=== PATIENT | female | born 1960 | race Caucasian/White ===

== ENCOUNTER 2018-01-12 13:31 | Inpatient (IN) | payer OTHER ==
[~2018-01-12] VITALS: Ht 162.6 cm; Wt 64.9 kg
[2018-01-12 14:40] LABS: ABSOLUTE BASOPHIL COUNT 0 /CUMM (0.0-0.2); ABSOLUTE EOSINOPHIL COUNT 0 /CUMM (0.0-0.7); ABSOLUTE GRANULOCYTE CT 18.5 /CUMM (1.4-6.5); ABSOLUTE LYMPH COUNT 0.9 /CUMM (1.2-3.4); ABSOLUTE MONOCYTE COUNT 1.2 /CUMM (0.10-0.60); BASOPHIL % 0 % (0.0-2.0); EOSINOPHIL % 0.1 % (0-5); HEMATOCRIT 36.7 % (37-47); MEAN CORPUSCULAR HGB 30.2 PG (27.0-31.0); MEAN CORPUSCULAR HGB CONC 33.9 G/DL (33.0-37.0); MEAN PLATELET VOLUME 7.3 FL (7.4-10.4); PLATELET COUNT 195 /CUMM (130-400); RBC DISTRIBUTION WIDTH 13.2 % (11.5-14.5); RED BLOOD CELL CT 4.13 /CUMM (4.20-5.40); WHITE BLOOD CELL COUNT 20.6 /CUMM (4.8-10.8)
--- NOTE | 2018-01-12 14:41 | RADIOLOGY REPORT ---
EXAMINATION: XR CHEST CLINICAL INFORMATION: Cough, evaluate for pneumonia COMPARISON: None TECHNIQUE: 2 views of the chest were obtained. FINDINGS: No significant abnormality is noted involving the heart, lungs, mediastinum, bony thorax or soft tissues. Fusion hardware projects over the lumbar spine, partially imaged. IMPRESSION: No acute pulmonary process.
[2018-01-12 14:46] LABS: GRANULOCYTE % 89.8 % (42.2-75.2)
--- NOTE | 2018-01-12 15:23 | CT SCAN REPORT ---
EXAMINATION: CT HEAD WITHOUT CONTRAST CLINICAL INFORMATION: Left-sided headache. COMPARISON: None TECHNIQUE: Contiguous axial imaging was performed from the skull base to vertex without intravenous administration of contrast. DLP: 610.4 mGy-cm FINDINGS: There is no evidence of acute intracranial hemorrhage or territorial infarction. No abnormal mass effect or midline shift is seen. Gaitan to white matter differentiation is well preserved. No extra-axial fluid collections are identified. The ventricles are normal in size. There is no abnormal attenuation within the brain parenchyma. The osseous structures and soft tissues are normal. The mastoid air cells and visualized portions of the paranasal sinuses are well aerated. IMPRESSION: No acute intracranial pathology.
--- NOTE | 2018-01-12 17:53 | ED GENERAL ADULT ---
History of Present Illness General Chief Complaint: General Adult Stated Complaint: PER PT INFECTION?, FEVER, DIZZINESS Source: patient Exam Limitations: no limitations Allergies Coded Allergies: Penicillins (SWELLING 01/12/18) ciprofloxacin (From CIPRO) (HIVES 01/12/18) Triage Note: PT TO ED C/O FEVER X 2 DAYS. PT HAD RECTAL SURGERY 12/21. PT SENT TO ED BY HER PCP TO R/O PNA OR UTI. C/O HEADACHE AND NAUSEA. AFEBRILE NOW. Triage Nurses Notes Reviewed? yes Onset: Gradual Duration: week(s): Timing: constant HPI: 58-year-old female with a history of hypertension, anxiety, HPV, 3 weeks postop from rectal surgery (had several rectal lesions excised and biopsied) presenting with urinary frequency/urgency 2 weeks and now with fevers to 103, nausea, and generalized malaise 2-3 days. She has also had intermittent left-sided stabbing headaches, does not normally have a history of headaches. No recent head trauma. Denies visual changes or vomiting. Denies URI symptoms, cough, CP , SOB, abdominal pain, vomiting, diarrhea, constipation, melena, hematochezia. Initially had slight bloody stools after her surgery which have since resolved. (Nereida Novoa) Vital Signs & Intake/Output Vital Signs & Intake/Output Vital Signs Date Time Temp Pulse Resp B/P B/P Pulse O2 O2 Flow FiO2 Mean Ox Delivery Rate 01/12 1859 98.3 89 15 112/63 99 Room Air Room Air 01/12 1632 97.2 87 18 116/58 99 Room Air 01/12 1414 98.6 107 20 123/77 97 Room Air Reconcile Medications Alprazolam (Alprazolam ER) 0.5 MG TAB.ER.24H 1 TAB PO QHS SLEEP (Reported) Aspirin (Ecotrin*) 81 MG TABLET.DR 1 TAB PO DAILY HEART/BLOOD (Reported) Escitalopram Oxalate (Lexapro) 20 MG TABLET 1 TAB PO DAILY MENTAL HEALTH ( Reported) Fish Oil/Borage/Flax/Om3,6,9#1 ([place] 3-6-9 1,200 MG Softgel) (Unknown Strength) CAPSULE (Unknown Dose) PO DAILY SUPPLEMENT (Reported) Fluticasone Propionate 50 MCG/ACTUATION SPRAY.SUSP 2 SPRAY NASB DAILY SINUSES (Reported) Pantoprazole Sodium 40 MG TABLET. 1 TAB PO Q4D GI (Reported) Valsartan/Hydrochlorothiazide (Valsartan-Hctz 160-25 MG Tab) 160 MG-25 MG TABLET 1 TAB PO DAILY BP (Reported) (Jorge HERNANDEZ,Yousuf) Past History Travel History Traveled to [place] past 21 day No Medical History Any Pertinent Medical History? see below for history Cardiovascular: hypertension Psychiatric: anxiety Surgical History Surgical History: rectal surgery Psychosocial History What is your primary language Zimbabwean Tobacco Use: Quit >30 days ago ETOH Use: denies use Illicit Drug Use: denies illicit drug use Family History Hx Contributory? No (Nereida Novoa) Review of Systems Review of Systems Constitutional: Reports: see HPI. EENTM: Reports: no symptoms. Respiratory: Reports: no symptoms. Cardiovascular: Reports: no symptoms. GI: Reports: no symptoms. Genitourinary: Reports: see HPI. Musculoskeletal: Reports: no symptoms. Skin: Reports: no symptoms. Neurological/Psychological: Reports: no symptoms. Hematologic/Endocrine: Reports: no symptoms. Immunologic/Allergic: Reports: no symptoms. All Other Systems: Reviewed and Negative (Nereida Novoa) Physical Exam Physical Exam General Appearance: well developed/nourished, no apparent distress, alert, awake Comments: Gen.: Well-nourished, well-developed, no acute distress. Head: Normocephalic, atraumatic. Eyes: Normal inspection bilaterally Ears: Normal inspection bilaterally Nose: Normal inspection Neck: Normal inspection Lungs: clear to auscultation bilaterally, normnal breath sounds Heart: regular rate and rhythm Abdomen: soft and non-tender Back: No CVA tenderness Extremities: Normal inspection Neurologic: alert and oriented x3, steady gait Skin: warm and dry Psychiatric: Normal mood and affect, no apparent delusions or hallucinations, behavior appropriate Core Measures ACS in differential dx? No CVA/TIA Diagnosis: No Sepsis Present: No Sepsis Focused Exam Completed? No (Nereida Novoa) Progress Differential Diagnoses I considered the following diagnoses in my evaluation of the patient: [UTI versus pyelonephritis versus sepsis versus dehydration] Initial ED EKG: rhythm (sinus), nonspecific ST T wave chg (Nereida Novoa) Plan of Care: Orders Procedure Date/time Status Heart Healthy Diet 01/13 B Active ED Holding Orders 01/12 184 Active Admit to inpatient 01/12 1843 Active Vital Signs 01/12 184 Active Code Status 01/12 184 Active US-RENAL/KIDNEY 01/12 182 Active Add-on Test (ER Only) 01/12 180 Active EKG 01/12 180 Active Add-on Test (ER Only) 01/12 1800 Active BLOOD CULTURE 01/12 1739 Active CULTURE,URINE 01/12 1550 Active TROPONIN LEVEL 01/12 1430 Complete URINALYSIS 01/12 141 Complete LACTIC ACID 01/12 141 Complete COMPREHENSIVE METABOLIC PANEL 01/12 141 Complete CBC WITHOUT DIFFERENTIAL 01/12 141 Complete EKG 01/12 141 Active Laboratory Tests 01/12/18 1716: Lactic Acid Cancelled 01/12/18 1550: Urinalysis LIGHT H, Urine Color YEL, Urine Clarity HAZY H, Urine pH 6.0, Ur Specific [place] 1.025, Urine Protein 30 H, Urine Ketones TRACE H, Urine Nitrite NEG, Urine Bilirubin NEG, Urine Urobilinogen 1.0, Ur Leukocyte Esterase LARGE H, Ur Microscopic SEDIMENT EXAMINED, Urine RBC 3-5, Urine WBC > 75 H, Ur Epithelial Cells MOD H, Urine Bacteria MANY H, Hyaline Casts 1-3 H, Urine Hemoglobin SMALL H, Urine Glucose NEG 01/12/18 1430: Anion Gap 14, Estimated GFR 38 L, BUN/Creatinine Ratio 16.4, Glucose 131 H, Lactic Acid 1.2, Calcium 9.2, Total Bilirubin 0.7, AST 29, ALT 31, Alkaline Phosphatase 68, Troponin I < 0.01, Total Protein 7.2, Albumin 4.2, Globulin 3.0, Albumin/Globulin Ratio 1.4, CBC w Diff MAN DIFF ORDERED, RBC 4.13 L, MCV 89.0, MCH 30.2, MCHC 33.9, RDW 13.2, MPV 7.3 L, Gran % 89.8 H, Lymphocytes % 4.4 L, Monocytes % 5.7, Eosinophils % 0.1, Basophils % 0, Absolute Granulocytes 18.5 H , Segmented Neutrophils 81 H, Band Neutrophils 6 H, Absolute Lymphocytes 0.9 L, Lymphocytes 7 L, Monocytes 6, Absolute Monocytes 1.2 H, Absolute Eosinophils 0, Absolute Basophils 0, Platelet Estimate VERIFIED BY SMEAR, Normocytic RBCs VERIFIED, Normochromic RBCs VERIFIED Microbiology 09/19 1827 BLOOD: Blood Culture - RECD 01/12 1800 BLOOD: Blood Culture - RECD 01/12 1550 URINE ROUT: Urine Culture - RECD UA is suspicious for UTI, urine culture sent. Labs show leukocytosis of 20 with a left shift and an NISHI with increasing creatinine from less than 1 to 1.4 and GFR decreased from greater than [address] unremarkable. Chest x-ray unremarkable. Given the patient's acute renal failure in the setting of her UTI she will be admitted to general medicine for IV antibiotics, IV fluids, and serial chemistries. (Nereida Novoa) (Yousuf Patel MD) Departure Departure Disposition: STILL A PATIENT Condition: Stable Clinical Impression Primary Impression: UTI (urinary tract infection) Secondary Impressions: NISHI (acute kidney injury) Referrals: Jnuie Mayberry MD (PCP/Family) Departure Forms: Customer Survey General Discharge Information Admission Note Spoke With: Syd Russell MD Documentation of Exam: Documentation of any treatments & extenuating circumstances including Concerns Regarding Discharge (functional status, medication knowledge or non-compliance, living conditions, etc.) that warrant an admission rather than observation: [IV fluids, IV antibiotics, serial chemistries, renal ultrasound, urine culture follow-up with narrowing of antibiotics as necessary] (Nereida Novoa) PA/PILL MAKER Co-Sign Statement Statement: ED Attending supervision documentation- x I saw and evaluated the patient. I have also reviewed all the pertinent lab results and diagnostic results. I agree with the findings and the plan of care as documented in the PA's/PILL MAKER's documentation. The admission patient is in no acute cardio primary distress and is hemodynamically stable. [] I have reviewed the ED Record and agree with the PA's/PILL MAKER's documentation. [] Additions or exceptions (if any) to the PAs/PILL MAKER's note and plan are summarized below: [] (Yousuf Patel MD) Critical Care Note Critical Care Note Critical Care Time: non-applicable (Nereida Novoa)
[2018-01-12] MEDS ORDERED: ALPRAZOLAM ER0.5 MG PO (18:40)
[2018-01-12] MEDS ORDERED: VALSARTAN-HCTZ1 EAC2 PO (18:40)
[2018-01-12] MEDS ORDERED: PANTOPRAZOLE SO40 M1 PO (18:41)
[2018-01-12] MEDS ORDERED: LEXAPRO20 M1 PO (18:41)
[2018-01-12] MEDS ORDERED: FLUTICASONE PRO16 GM NASB (18:41)
[2018-01-12] MEDS ORDERED: ASPIRIN EC81 M1 PO (18:42)
[2018-01-12] MEDS ORDERED: OMEGA 3-6-9 11200 MG PO (18:42)
--- NOTE | 2018-01-12 20:00 | History & Physical ---
Hesham Young 01/12/18 2000: General Information and HPI MD Statement: I have seen and personally examined RAFITA PEREZ and documented this H&P. The patient is a 58 year old F who presented with a patient stated chief complaint of [fever]. Source of Information: patient Exam Limitations: no limitations History of Present Illness: 58 year old female with history of hypertension, anxiety, lumbar fusion, anal cancer status post tumor removal, HPV status post recent rectal surgery with Dr. Yanez on 12/21 with multiple biopsies and "growths" removed. 2 days prior to admission the patient began to notice that she had a loss of appetite, as well as feeling lightheaded before going to bed. Next day she called in sick from work because she began feeling generally worse, with some dizziness and weakness. She also reported fever that she measured at home to be 103F the night prior to admission, in addition to chills, sweats, nausea, productive cough, headache/throbbing pain above her left ear and a sense of fullness or pressure in her bladder that has been present since her recent operation. She denied dysuria, constipation, diarrhea or blood in the stool. She denied sick contacts at home or recent travel. She is a former smoker who quit over 10 years ago and would occasionally smoke approximately 10 cigarettes per week. She occasionally uses alcohol, a few drinks on the weekends. Denies illicit drug use. Allergies/Medications Allergies: Coded Allergies: Penicillins (SWELLING 01/12/18) ciprofloxacin (From CIPRO) (HIVES 01/12/18) Home Med list Alprazolam (Alprazolam ER) 0.5 MG TAB.ER.24H 1 TAB PO QHS SLEEP (Reported) Aspirin (Ecotrin*) 81 MG TABLET.DR 1 TAB PO DAILY HEART/BLOOD (Reported) Escitalopram Oxalate (Lexapro) 20 MG TABLET 1 TAB PO DAILY MENTAL HEALTH ( Reported) Fish Oil/Borage/Flax/Om3,6,9#1 ([place] 3-6-9 1,200 MG Softgel) (Unknown Strength) CAPSULE (Unknown Dose) PO DAILY SUPPLEMENT (Reported) Fluticasone Propionate 50 MCG/ACTUATION SPRAY.SUSP 2 SPRAY NASB DAILY SINUSES (Reported) Pantoprazole Sodium 40 MG TABLET.DR 1 TAB PO Q4D GI (Reported) Valsartan/Hydrochlorothiazide (Valsartan-Hctz 160-25 MG Tab) 160 MG-25 MG TABLET 1 TAB PO DAILY BP (Reported) Past History Travel History Traveled to [place] past 21 day No Medical History Cardiovascular: hypertension Psychiatric: anxiety Surgical History Surgical History: rectal surgery Past Family/Social History Psychosocial History ETOH Use: denies use Illicit Drug Use: denies illicit drug use Review of Systems Review of Systems Constitutional: Reports: chills, diaphoresis, fever, weakness. EENTM: Reports: throat pain. Denies: ear pain, ear redness, hearing changes, nasal congestion. Cardiovascular: Denies: chest pain, orthopena, peripheral edema. Respiratory: Reports: cough, sputum production. Denies: hemoptysis, stridor. GI: Reports: nausea. Denies: abdominal pain, bloating, constipation, diarrhea, bloody stool, vomiting. Genitourinary: Denies: discharge, dysuria, frequency, urgency. Neurological/Psychological: Reports: headache. Denies: numbness, tingling. Exam & Diagnostic Data Last 24 Hrs of Vital Signs/I&O Vital Signs Date Time Temp Pulse Resp B/P B/P Pulse O2 O2 Flow FiO2 Mean Ox Delivery Rate 01/12 2257 98.3 84 18 121/61 99 Room Air 01/12 1859 98.3 89 15 112/63 99 Room Air Room Air 01/12 1632 97.2 87 18 116/58 99 Room Air 01/12 1414 98.6 107 20 123/77 97 Room Air Intake & Output 01/13 0800 01/13 0000 01/12 1600 Intake Total Output Total Balance Patient 67.132 kg Weight Weight Reported by Patient Measurement Method Physical Exam General Appearance Alert, Oriented X3, Cooperative, No Acute Distress HEENT Atraumatic, PERRLA, EOMI, Mucous Membr. moist/pink Neck Supple, No JVD, No thryomegaly Lymphatic Axillary nl, Cervical nl Lungs Clear to Auscultation, Normal Air Movement Abdomen Normal Bowel Sounds, Soft, R sided CVA tenderness, LLQ tenderness to deep palpation Neurological Normal Speech, Strength at 5/5 X4 Ext, Normal Tone, Sensation Intact Extremities No Clubbing, No Cyanosis, No Edema, Normal Pulses Last 24 Hrs of Labs/Marty: Laboratory Tests 01/12/18 1716: Lactic Acid Cancelled 01/12/18 1550: Urinalysis LIGHT H, Urine Color YEL, Urine Clarity HAZY H, Urine pH 6.0, Ur Specific [place] 1.025, Urine Protein 30 H, Urine Ketones TRACE H, Urine Nitrite NEG, Urine Bilirubin NEG, Urine Urobilinogen 1.0, Ur Leukocyte Esterase LARGE H, Ur Microscopic SEDIMENT EXAMINED, Urine RBC 3-5, Urine WBC > 75 H, Ur Epithelial Cells MOD H, Urine Bacteria MANY H, Hyaline Casts 1-3 H, Urine Hemoglobin SMALL H, Urine Glucose NEG 01/12/18 1430: Anion Gap 14, Estimated GFR 38 L, BUN/Creatinine Ratio 16.4, Glucose 131 H, Lactic Acid 1.2, Calcium 9.2, Total Bilirubin 0.7, AST 29, ALT 31, Alkaline Phosphatase 68, Troponin I < 0.01, Total Protein 7.2, Albumin 4.2, Globulin 3.0, Albumin/Globulin Ratio 1.4, CBC w Diff MAN DIFF ORDERED, RBC 4.13 L, MCV 89.0, MCH 30.2, MCHC 33.9, RDW 13.2, MPV 7.3 L, Gran % 89.8 H, Lymphocytes % 4.4 L, Monocytes % 5.7, Eosinophils % 0.1, Basophils % 0, Absolute Granulocytes 18.5 H , Segmented Neutrophils 81 H, Band Neutrophils 6 H, Absolute Lymphocytes 0.9 L, Lymphocytes 7 L, Monocytes 6, Absolute Monocytes 1.2 H, Absolute Eosinophils 0, Absolute Basophils 0, Platelet Estimate VERIFIED BY SMEAR, Normocytic RBCs VERIFIED, Normochromic RBCs VERIFIED Microbiology 01/12 1827 BLOOD: Blood Culture - RECD 01/12 1800 BLOOD: Blood Culture - RECD 01/12 1550 URINE ROUT: Urine Culture - RECD Assessment/Plan Assessment: 58-year-old female with recent rectal surgery and prior history of anal cancer presenting with 2 days of fever, chills, dizziness/weakness on top of 2-3 weeks of sensation of fullness in the bladder, likely urinary tract infection. Patient's creatinine was 1.4, which is elevated from last known of 0.8 almost 5 years ago. She is also exhibiting leukocytosis with significant left shift and a positive urinalysis performed in the ED. Renal ultrasound showed normal kidneys bilaterally, without evidence of obstruction/hydronephrosis. Problems: 1. UTI 2. NISHI 3. Hypokalemia Plan: Full code As Ranked By This Provider Problem List: 1. NISHI (acute kidney injury) 2. UTI (urinary tract infection) Core Measures/Misc (01/10) Acute Coronary Syndrome ACS Diagnosis: No Congestive Heart Failure Congestive Heart Failure Diagnosis No Cerebrovascular Accident CVA/TIA Diagnosis: No VTE (View Protocol) VTE Risk Factors Age>40 No Mechanical VTE Prophylaxis d/t N/A MechProphylax Ordered No VTE Pharm Prophylaxis d/t NA PharmProphylax ordered Sepsis (View protocol) Sepsis Present: Yes If YES complete Sepsis Event Note If YES complete Sepsis Event Note Ebonie Child MD 01/12/18 2109: Core Measures/Misc (01/10) Sepsis (View protocol) If YES complete Sepsis Event Note If YES complete Sepsis Event Note Resident Review Statement Resident Statement: examined this patient, discussed with supply chain intern, agreed with supply chain intern, reviewed EMR data (avail), amended to note Other Findings: Patient is a 14-year-old female with past medical history of hypertension, anxiety, HPV, anal cancer status post surgical removal, multiple rectal lesions status post rectal surgery for excision and biopsy approximately 3 weeks prior presenting this admission with chief complaint of fever. Patient has been having fever with MAXIMUM TEMPERATURE to 103 along with nausea and generalized malaise for the past 2-3 days. Patient reports her symptoms started 2 days prior to admission with dizziness, sweats, chills, fever which worsened the following day. Patient called her PCP and was told to come to the ED for further evaluation. Patient reports nausea but no vomiting or abdominal pain. Reports anorexia and states that she has not been staying hydrated over the past 2 days. Reports that since her surgery she has been having increased urinary frequency and urgency. Denies any dysuria or hematuria. Denies constipation/diarrhea, melena, bright red blood per rectum or rectal pain. Reports experiencing a left-sided stabbing headache since the symptoms started which has subsided with ibuprofen and Tylenol. Denies any visual disturbances. Reports her right earache 2 days ago which has resolved. Denies tinnitus. Reports sore throat, productive cough with clear phlegm. Reports postnasal drip. Denies shortness of breath, palpitations, chest pain. Past medical history: As above Surgical history: Anal cancer status post resection, rectal lesions status post 8 biopsies and excision, lumbar fusion in 2007 Social history: Quit smoking 10 years ago previously smoked 10 cigarettes per week, reports occasional alcohol use, denies any other illicit drug use, no recent travel since her symptoms started, lives with her , denies sick contacts Allergies: Penicillin (swelling and hives), ciprofloxacin (swelling and hives), seasonal allergies Medications: Alprazolam 0.5 mg extended release, Lexapro 20 mg, fluticasone, pantoprazole, valsartan/hydrochlorothiazide, aspirin On admission: Vitals: MAXIMUM TEMPERATURE 98.6, heart rate 89-107, respiration rate 15-20, blood pressure 112/63, saturating at 97-99% on room air Physical exam as above Lab significant for WBC count of 20.6 with 89.8% granulocytes and 6 bands, H&H of 12.4 and 36.7, platelet count 195, sodium 134, potassium 3.2, BUN and creatinine 23 and 1.4 (baseline creatinine 0.8) , glucose 131, lactic acid 1.2, UA negative for nitrites and positive for leukocyte esterase and WBC greater than 75 along with WBC of greater than 75. Patient is a 58-year-old female with past medical history significant for recent rectal surgery presenting with 2 weeks of urinary tract symptoms along with fever and leukocytosis, new onset headache. Patient ED received 1 L, saline bolus and ceftriaxone 1 mg 1. Chest x-ray was negative. Head CT was negative. Renal ultrasound was normal. Problems: Sepsis 2/2 urinary tract infection NISHI likely prerenal in setting of decreased oral intake Rectal lesions status post recent biopsy and excision Chronic conditions: Hypertension, anxiety, GERD Plan: Admitted to general med Follow-up urine culture and blood cultures Continue IV ceftriaxone 1 g daily If patient's symptoms do not improve consider CT abdomen pelvis as patient did have some R sided CVA tenderness Monitor vitals every shift and repeat CBC in a.m. Continue IV fluid hydration Strict ins and outs Avoid nephrotoxic agents including NSAIDs Continue to monitor BUN and creatinine We will hold valsartan/hydrochlorothiazide insetting of NISHI and UTI Continue home medications, CTPMP checked. Will continue xanax 0.5mg qhs. Patient reports she was recently started back on lexapro however has not taken it yet. Confirm lexapro dose with patient prior to starting. Code: Full code DVT prophylaxis: Alps, heparin subcutaneous Diet: Heart healthy Syd Russell 01/12/18 2158: Core Measures/Misc (01/10) Sepsis (View protocol) If YES complete Sepsis Event Note If YES complete Sepsis Event Note Attending MD Review Statement Attending Statement Attending MD Statement: examined this patient, discuss w/resident/PA/PRICER BAGGER, agreed w/resident/PA/PRICER BAGGER Attending Assessment/Plan: Addendum by . Patient was seen and examined at bedside today (01/12/18 ) at 8pm. Reviewed the history physical done by the resident. Reviewed the past medical family, family, social history. ROS: 10 point system reviewed and negative except as described above. See the resident note for full examination. On my exam-patient is not in distress, abdomen is benign, no suprapubic tenderness. Labs, renal ultrasound reviewed. a/p: Sepsis due to UTI. Clinically no pyelonephritis. Also does not seem to have any complications from the recent annual papilloma surgery. Continue the ceftriaxone. Follow the urine cultures, blood cultures. #mild acute renal failure-continue with IV fluids. There was no obstruction noted on the renal ultrasound. Check BMP in the morning. #Hyperkalemia, mild hyponatremia-replace potassium, check BMP in the morning. #History of cancer per patient status post surgery in the past. History of HPV infection. #hypertension, anxiety-stable. #headache-resolved, patient had a CT head for this which was normal. Reviewed with the resident. Agree with the rest of the plan as per resident's note. Dr.Ravinder Chyna MD. Hospitalist. Pager: [phone], cell: [phone].
--- NOTE | 2018-01-12 20:02 | ULTRASOUND REPORT ---
US RETROPERITONEAL COMPLETE (RENAL) CLINICAL INFORMATION: Urine infection.. COMPARISON: None available. TECHNIQUE: Real-time imaging of the kidneys and bladder. FINDINGS: RIGHT KIDNEY: 11.7 x 5.3 x 5.5 cm (SAG x AP x TRV). The kidney is normal in size, contour, and echogenicity. Renal cortical thickness is normal. No calculi or focal parenchymal lesions. No hydronephrosis. LEFT KIDNEY: 9.8 x 5.6 x 4.6 cm (SAG x AP x TRV). The kidney is normal in size, contour, and echogenicity. Renal cortical thickness is normal. No calculi or focal parenchymal lesions. No hydronephrosis. BLADDER: Well-distended and normal. Right ureteral jet is identified. No left ureteral jet is seen. Prevoid bladder volume is 70 mL. Postvoid bladder volume is 3 mL. IMPRESSION: Unremarkable renal ultrasound.
--- NOTE | 2018-01-13 05:04 | Sepsis Event Note ---
Sepsis Event Note Severe Sepsis Severe Sepsis Present: No Septic Shock Septic Shock Present: No Sepsis Focused Exam Sepsis Cardiac Exam: Tachycardia Sepsis Resp Exam: CTA Sepsis Cap Refill Exam: <2 Sec Sepsis Peripheral Pulse Exam: Normal Sepsis Peripheral Pulse Location: Dorsalis Pedis Sepsis Skin Exam (color): Normal for Ethnicity Skin Temp/Moisture Exam: Warm/Dry
[2018-01-13 06:15] LABS: ABSOLUTE BASOPHIL COUNT 0 /CUMM (0.0-0.2); ABSOLUTE EOSINOPHIL COUNT 0.1 /CUMM (0.0-0.7); ABSOLUTE GRANULOCYTE CT 12.4 /CUMM (1.4-6.5); ABSOLUTE LYMPH COUNT 0.6 /CUMM (1.2-3.4); BASOPHIL % 0.1 % (0.0-2.0); EOSINOPHIL % 0.5 % (0-5); GRANULOCYTE % 88.3 % (42.2-75.2); HEMATOCRIT 34.4 % (37-47); MEAN CORPUSCULAR HGB 30.1 PG (27.0-31.0); MEAN CORPUSCULAR HGB CONC 34.1 G/DL (33.0-37.0); MEAN CORPUSCULAR VOLUME 88.1 FL (81.0-99.0); MEAN PLATELET VOLUME 7.1 FL (7.4-10.4); PLATELET COUNT 189 /CUMM (130-400); RBC DISTRIBUTION WIDTH 13.2 % (11.5-14.5); RED BLOOD CELL CT 3.91 /CUMM (4.20-5.40)
[2018-01-13 06:31] LABS: WHITE BLOOD CELL COUNT 14.1 /CUMM (4.8-10.8)
[2018-01-13 07:00] VITALS: BP 105/44
--- NOTE | 2018-01-13 09:33 | PN- Housestaff ---
Wesly Menchaca 01/13/18 0931: Subjective Follow-up For: UTI NISHI Subjective: Patient was seen and examoned today . She says she feels better, Decreased fevers, RLQ pain. But continues to have flank pain. Denies chills today Review of Systems Constitutional: Reports: see HPI. Objective Last 24 Hrs of Vital Signs/I&O Vital Signs Date Time Temp Pulse Resp B/P B/P Pulse O2 O2 Flow FiO2 Mean Ox Delivery Rate 01/13 2036 99.2 01/13 1417 98.3 90 18 125/99 98 Room Air 01/13 1237 97.5 01/13 0838 99.0 95 20 106/64 91 01/13 0700 99.0 95 20 105/44 91 Room Air Room Air 01/13 0558 99.5 106 18 123/63 95 Room Air 01/12 2257 98.3 84 18 121/61 99 Room Air Intake & Output 01/13 1600 01/13 0800 01/13 0000 Intake Total 400 Output Total 200 Balance 200 Intake, IV 200 Intake, Oral 200 Output, Urine 200 Patient 143 lb 148 lb Weight Weight Reported by Patient Reported by Patient Measurement Method Physical Exam General Appearance: Alert, Oriented X3, Cooperative, No Acute Distress Cardiovascular: Regular Rate, No Murmurs Lungs: Clear to Auscultation, Normal Air Movement Abdomen: Normal Bowel Sounds, Soft, No Hepatospenomegaly, No Masses, rlq tenderness Neurological: Normal Speech, Strength at 5/5 X4 Ext, Normal Tone, Sensation Intact Extremities: No Clubbing, No Cyanosis, No Edema, Normal Pulses, No Tenderness/ Swelling Assessment/Plan Assessment: examine the surgical site 58-year-old female with recent rectal surgery and prior history of anal cancer presenting with 2 days of fever, chills, dizziness/weakness on top of 2-3 weeks of sensation of fullness in the bladder, likely urinary tract infection. Patient's creatinine was 1.4, which is elevated from last known of 0.8 almost 5 years ago. She is also exhibiting leukocytosis with significant left shift and a positive urinalysis performed in the ED. Renal ultrasound showed normal kidneys bilaterally, without evidence of obstruction/hydronephrosis. EKG- non specific t wave changes seen ad the Pt is asymptomatic. Hence no intervention required, Problems: 1. UTI 2. NISHI 3. Hypokalemia Plan: UTI- Patient has a RLQ pain , and renal USG came negatiove for peyelonephritis. -will examine the surgocal site to look for any abnormalities and to rule out primary renetta of infection. Hypokalemia, NISHI - Full code Problem List: 1. UTI (urinary tract infection) 2. NISHI (acute kidney injury) Pain Ratin Pain Location: RLQ Pain Goal: Remain pain free Pain Plan: none Tomorrow's Labs & Rationales: none Deon Cutler MD 01/13/18 1213: Attending MD Review Statement Attending Statement Attending MD Statement: examined this patient, discuss w/resident/PA/CHIEF LIFESTYLE OFFICER, agreed w/resident/PA/CHIEF LIFESTYLE OFFICER, reviewed EMR data (avail), discussed with nursing, discussed with case mgmt, amended to note Attending Assessment/Plan: Patient seen and examined. Resting comfortably unless in any acute distress. Each are reviewed and case discussed with house staff. She presents with fever and is being treated empirically for urinary tract infection. She denied any dysuria but it admits to increased urinary frequency. On presentation she had initially complained of right flank pain. She denies any pain at the surgical site. On examination she is not in any distress. Abdomen is soft with tenderness in the right lower quadrant. No rebound or guarding. No palpable masses. Normoactive bowels. With antibiotic therapy overnight white count has improved significantly from 20 ,000-14,000 today. Urine cultures currently growing gram-negative rods. She is afebrile. She is not tachycardic. Blood pressure however is in the low 100s this morning. Recommendations: -Continue therapy for pyelonephritis with IV Rocephin. -Follow-up urine and blood cultures. -Continue to monitor renal function for improvement. No evidence of obstruction or abscess on imaging.
[2018-01-13 14:17] VITALS: BP 125/99
[2018-01-13 22:10] VITALS: BP 110/70
[2018-01-14 07:00] VITALS: BP 126/71
--- NOTE | 2018-01-14 07:55 | PN- Housestaff ---
Wesly Menchaca 01/14/18 0754: Subjective Follow-up For: UTI/? pyelonephritis NISHI Subjective: Patient was seen and examined this morning. SHe has a severe headache. aqnd had chills at 2 am last night. she takes topiramate for her migraines, but last had them 2 years ago. abdominal pain seems to be getting worse. so we discssed to get a CT Review of Systems Constitutional: Reports: see HPI. Objective Last 24 Hrs of Vital Signs/I&O Vital Signs Date Time Temp Pulse Resp B/P B/P Pulse O2 O2 Flow FiO2 Mean Ox Delivery Rate 01/14 07 99.0 74 18 126/71 97 01/13 221 99.2 72 18 110/70 94 01/13 2135 98.0 01/13 203 99.2 01/13 1417 98.3 90 18 125/99 98 Room Air 01/13 1237 97.5 Intake & Output 01/14 1600 01/14 0800 01/14 0000 Intake Total 480 800 Output Total 500 Balance 480 300 Intake, IV 800 Intake, Oral 480 Number 1 Bowel Movements Output, Urine 500 Physical Exam General Appearance: Alert, Oriented X3, Cooperative, No Acute Distress Cardiovascular: Regular Rate, No Murmurs Lungs: Clear to Auscultation, Normal Air Movement Abdomen: Normal Bowel Sounds, Soft, No Hepatospenomegaly, No Masses, tenderness on the right side Neurological: Normal Speech, Strength at 5/5 X4 Ext, Normal Tone, Sensation Intact Current Medications: Current Medications Sig/[place] Start time Last Medication Dose Route Stop Time Status Admin Acetaminophen 650 MG Q6P PRN 01/12 2215 AC 01/14 PO 0830 Acetaminophen 1,000 MG Q6P PRN 01/12 2215 AC IV Acetaminophen/ 1 TAB ONCE ONE 01/14 0215 DC 01/14 Butalbital/Caffeine PO 01/14 0216 0239 Acetaminophen/ 1 TAB ONCE ONE 01/13 1600 DC 01/13 Butalbital/Caffeine PO 01/13 1601 1659 Alprazolam 0.5 MG AT BEDTIME 01/13 2100 AC 01/13 PO 01/20 Aspirin Buffered 81 MG DAILY 01/13 900 AC 01/14 PO 925 Ceftriaxone Sodium 1,000 MG DAILY 01/13 09 AC 01/14 IV 0936 Escitalopram Oxalate 20 MG DAILY 01/14 0900 AC 01/14 PO 0928 Escitalopram Oxalate 10 MG DAILY 01/13 1545 DC 01/13 PO 1750 Fluticasone 2 SPRAY DAILY 01/13 09 AC 01/14 Propionate VARINDER 0927 Heparin Sodium 5,000 UNIT Q8 01/13 0600 AC 01/14 (Porcine) SC 0511 Influenza Virus 0.5 ML ONCE ONE 01/13 1400 DC Vaccine IM 01/13 1401 Omeprazole 40 MG DAILY AC 01/13 0700 AC 01/14 PO 0511 Oxycodone HCl 5 MG Q6 PRN 01/14 0945 CAN PO Polyethylene Glycol 17 GM AT BEDTIME 01/13 2100 AC 01/13 PO 2035 Potassium Chloride 40 MEQ Q12 01/13 2100 AC 01/14 PO 01/14 1100 0928 Senna/Docusate Sodium 1 TAB AT BEDTIME 01/13 2100 AC 01/13 PO 203 Sodium Chloride 1,000 ML .Q10H 01/12 2215 AC 01/14 IV 0150 Last 24 Hrs of Lab/Marty Results Last 24 Hrs of Labs/Mics: Laboratory Tests 01/14/18 0634: Anion Gap 9, Estimated GFR 57 L, BUN/Creatinine Ratio 15.0, Magnesium 2.0, CBC w Diff NO MAN DIFF REQ, RBC 3.36 L, MCV 89.0, MCH 30.3, MCHC 34.0, RDW 13.3, MPV 8.3, Gran % 78.0 H, Lymphocytes % 12.3 L, Monocytes % 8.1, Eosinophils % 1.1, Basophils % 0.5, Absolute Granulocytes 5.8, Absolute Lymphocytes 0.9 L, Absolute Monocytes 0.6, Absolute Eosinophils 0.1, Absolute Basophils 0 Assessment/Plan Assessment: 58-year-old female with recent rectal surgery and prior history of anal cancer presenting with 2 days of fever, chills, dizziness/weakness on top of 2-3 weeks of sensation of fullness in the bladder, likely urinary tract infection. Patient's creatinine was 1.4, which is elevated from last known of 0.8 almost 5 years ago. She is also exhibiting leukocytosis with significant left shift and a positive urinalysis performed in the ED. Renal ultrasound showed normal kidneys bilaterally, without evidence of obstruction/hydronephrosis. EKG- non specific t wave changes seen ad the Pt is asymptomatic. Hence no intervention required, Problems: 1. UTI 2. NISHI 3. Hypokalemia Plan: UTI- - Patient has a RLQ pain , and renal USG came negatiove for peyelonephritis. Since she continues to have pain we will order a CAT scan, follow-up with reports. antibiotics as reported. -Surgical site looks normal, no source of infection noted. Hypokalemia, NISHI - -Potassium levels continue to remain the same hence check magnesium and replete as required. Headache- Remote history of migraines, was on Topamax Patient is allergic to Percocet, cannot give Tylenol/ NSAIDS excessively because of the NISHI picture Careful usage of pain medications Full code Problem List: 1. UTI (urinary tract infection) 2. NISHI (acute kidney injury) 3. Headache Pain Ratin Pain Location: tyelenol Pain Goal: Remain pain free Pain Plan: none Tomorrow's Labs & Rationales: BEP, cbc He HERNANDEZ,Deon 01/14/18 1029: Attending MD Review Statement Attending Statement Attending MD Statement: examined this patient, discuss w/resident/PA/ENROLLMENT MANAGEMENT DIRECTOR, agreed w/resident/PA/ENROLLMENT MANAGEMENT DIRECTOR, reviewed EMR data (avail), discussed with nursing, discussed with case mgmt, amended to note Attending Assessment/Plan: Patient seen and examined. Review of her E HR appears to show clinical improvement. She has remained afebrile. Leukocytosis has resolved today. Her acute kidney injury has resolved with creatinine of 1.0 today. Patient however complained of chills and rigors overnight. She continues to complain of abdominal pain located in the right lower quadrant. On examination abdomen is soft and nondistended. She has no flank or CVA tenderness. She does have tenderness in the right lower quadrant. There is no rebound. There is no guarding. Bowel sounds are normoactive. She did for urinary tract infection based on her urinary complaints positive urine cultures however a persistent right lower quadrant pain is concerning. In view of this will obtain CT abdomen and pelvis to evaluate for any other intra- abdominal infectious process. She is also complaining of headaches. She admits a history of migraine headache and states she has used Topamax in the past. She did report some improvement with use of Fioricet yesterday. Repeat Fioricet today. Percocet to her regimen for further optimization of her abdominal pain control.
[2018-01-14 08:10] LABS: ABSOLUTE BASOPHIL COUNT 0 /CUMM (0.0-0.2); ABSOLUTE EOSINOPHIL COUNT 0.1 /CUMM (0.0-0.7); ABSOLUTE GRANULOCYTE CT 5.8 /CUMM (1.4-6.5); ABSOLUTE LYMPH COUNT 0.9 /CUMM (1.2-3.4); ABSOLUTE MONOCYTE COUNT 0.6 /CUMM (0.10-0.60); BASOPHIL % 0.5 % (0.0-2.0); EOSINOPHIL % 1.1 % (0-5); HEMATOCRIT 29.9 % (37-47); MEAN CORPUSCULAR HGB 30.3 PG (27.0-31.0); MEAN PLATELET VOLUME 8.3 FL (7.4-10.4); PLATELET COUNT 179 /CUMM (130-400); RBC DISTRIBUTION WIDTH 13.3 % (11.5-14.5); RED BLOOD CELL CT 3.36 /CUMM (4.20-5.40); WHITE BLOOD CELL COUNT 7.4 /CUMM (4.8-10.8)
[2018-01-14] MEDS ORDERED: CIPRO500 M1 PO ×2 (13:26→15:37)
[2018-01-14 14:24] VITALS: BP 126/63
--- NOTE | 2018-01-14 17:24 | Patient Discharge Instructions ---
Discharge Instructions General Discharge Information You were seen/treated for: UTI pyelonephritis NISHI Special Instructions: Please f/u with PCP within 1 week of discharge Acute Coronary Syndrome Inclusion Criteria At DC or during hospital stay patient has or had the following: Discharge Core Measures Meds if any: Prescribed or Continued at Discharge Meds if any: NOT Prescribed or Continued at Discharge Congestive Heart Failure Inclusion Criteria At DC or during hospital stay patient has or had the following: Discharge Core Measures Meds if any: Prescribed or Continued at Discharge Meds if any: NOT Prescribed or Continued at Discharge Cerebrovascular accident Inclusion Criteria At DC or during hospital stay patient has or had the following: CVA/TIA Diagnosis No Discharge Core Measures Meds if any: Prescribed or Continued at Discharge Meds if any: NOT Prescribed or Continued at Discharge Venous thromboembolism Discharge Core Measures - Per Current guidelines, there needs to be overlap - treatment for the first 5 days of Warfarin therapy. - If discharged on Warfarin prior to 5 days of - overlap therapy, the patient will need to be - assessed for post discharge needs including - *Post discharge parental anticoagulation - *Warfarin and/or parental anticoagulation education - *Follow up date to check INR post discharge Meds if any: Prescribed or Continued at Discharge Note: Overlap Therapy is Warfarin and Anticoagulant Meds if any: NOT Prescribed or Continued at Discharge
--- NOTE | 2018-01-14 19:06 | CT SCAN REPORT ---
EXAMINATION: CT ABDOMEN AND PELVIS WITHOUT CONTRAST CLINICAL INFORMATION: Pyelonephritis. Abdominal pain. Fever and chills. COMPARISON: None TECHNIQUE: Multidetector volumetric imaging was performed from the superior aspect of the liver through the pubic symphysis. Sagittal and coronal reformatted images were obtained on the technologist's workstation. DLP: 283.25 mGy-cm FINDINGS: LUNG BASES: The visualized lung bases are unremarkable. LIVER, GALLBLADDER, AND BILIARY TREE: The liver is normal in size, shape, and attenuation. No focal hepatic lesion or biliary ductal dilatation is present. The gallbladder is unremarkable with no evidence of radiopaque gallstones, gallbladder wall thickening, or obvious pericholecystic inflammatory changes. PANCREAS: Unremarkable. SPLEEN: Unremarkable. Spleen measures 12 cm AP. ADRENAL GLANDS: Unremarkable. KIDNEYS AND URETERS: The kidneys are normal in size, shape, and attenuation. No hydronephrosis, hydroureter, or calculi seen. No perinephric stranding. BLADDER: Unremarkable. GASTROINTESTINAL TRACT: The small and large bowel are unremarkable. The appendix is unremarkable. ABDOMINAL WALL: No significant hernia is appreciated. LYMPH NODES: Normal. VASCULAR: Unremarkable. PELVIC VISCERA: Uterus is retroverted. There is coarse calcifications in the uterus. Largest at the fundus measuring 4 x 3 x 2.7 cm. There is no adnexal abnormality. OSSEOUS STRUCTURES: Degenerative change of the spine with multilevel endplate spurring and facet joint arthrosis. Patient has anterior fusion of the L2-L3 disc. There is a minimal retrolisthesis of L1 on L2 due to degenerative change. IMPRESSION: No acute abnormality of the abdomen or the pelvis.
[2018-01-14 22:51] VITALS: BP 126/77
[2018-01-15 06:51] VITALS: BP 130/75
[2018-01-15 08:42] LABS: ABSOLUTE BASOPHIL COUNT 0 /CUMM (0.0-0.2); ABSOLUTE EOSINOPHIL COUNT 0 /CUMM (0.0-0.7); ABSOLUTE GRANULOCYTE CT 5.8 /CUMM (1.4-6.5); ABSOLUTE LYMPH COUNT 0.7 /CUMM (1.2-3.4); ABSOLUTE MONOCYTE COUNT 0.9 /CUMM (0.10-0.60); BASOPHIL % 0.4 % (0.0-2.0); EOSINOPHIL % 0.6 % (0-5); GRANULOCYTE % 77.6 % (42.2-75.2); HEMATOCRIT 28.3 % (37-47); MEAN CORPUSCULAR HGB 30.4 PG (27.0-31.0); MEAN CORPUSCULAR HGB CONC 34.7 G/DL (33.0-37.0); MEAN CORPUSCULAR VOLUME 87.6 FL (81.0-99.0); MEAN PLATELET VOLUME 7.9 FL (7.4-10.4); PLATELET COUNT 185 /CUMM (130-400); RBC DISTRIBUTION WIDTH 13.5 % (11.5-14.5); RED BLOOD CELL CT 3.23 /CUMM (4.20-5.40); WHITE BLOOD CELL COUNT 7.5 /CUMM (4.8-10.8)
--- NOTE | 2018-01-15 08:52 | PN- Att Addend ---
Attending Addendum Attending Brief Note Patient seen and examined. Lying in bed does not appear to be in acute distress at present however she was reported to be febrile overnight and again this morning. She had a temperature yesterday of 102. This morning she had a temperature 100.7. She denies any dysuria or continues to complain of right lower quadrant abdominal discomfort. CT abdomen and pelvis was done yesterday. It showed no adnexal abnormality. Bladder was unremarkable. No hydronephrosis or hydroureter or calculus. Rectal air was evaluated by the female medical residents yesterday with no reported erythema discharge or other evidence of infection Vital Signs Date Time Temp Pulse Resp B/P B/P Pulse O2 O2 Flow FiO2 Mean Ox Delivery Rate 01/15 0651 100.7 86 20 130/75 92 Room Air 01/14 2305 99.1 01/14 2251 88 20 126/77 96 Room Air 01/14 2206 102.8 01/14 2205 102.8 01/14 1752 99.4 01/14 1752 99.4 01/14 1627 102.2 01/14 1622 102.2 01/14 1424 98.7 83 18 126/63 98 Room Air General appearance: Well-developed and not in any acute distress. HEENT: Anicteric, no pallor, pupils equal and reactive. Neck: Supple with no jugular venous distention. Heart: S1-S2 regular with no audible murmur. Lungs: Adequate and symmetric air entry bilaterally with no added sounds. Abdomen: Nondistended with normal bowel sounds. Soft, nontender with no palpable masses. Extremities: No pedal edema. No cyanosis. Skin: Intact CBCs pending this morning. Problems: 1. Pyelonephritis. Secondary to E. coli 2. Condylomata acuminata; status post resection last month. 3. Hypertension 4. Anxiety disorder 5. Anal cancer status post resection. Plan: -After 3 days of IV antibiotic therapy with ceftriaxone patient continues to spike fever. She is growing E. coli that is resistant to ampicillin. It has intermediate sensitivity to Unasyn. It is sensitive to ciprofloxacin however patient reports that she develops itching hives and facial swelling on Cipro. She reports similar reaction to penicillins as well. -Based on her reported allergies and sensitivities Bactrim would be the only choice left at this point. Begin patient on Bactrim 1 double strength tablet twice daily.
--- NOTE | 2018-01-15 09:54 | PN- Housestaff ---
Subjective Follow-up For: UTI/pyelonephritis Subjective: Patient seen and examined. She is seen lying flat in bed appearing restless and uncomfortable. She appears to be in no acute distress. She reports feeling no better or worse than when she came in and is complaining of feeling very feverish with occasional chills and profuse sweats. She otherwise denies any chest pain, shortness of breath, nausea, vomiting, or diarrhea. Review of Systems Constitutional: Reports: see HPI. Objective Last 24 Hrs of Vital Signs/I&O Vital Signs Date Time Temp Pulse Resp B/P B/P Pulse O2 O2 Flow FiO2 Mean Ox Delivery Rate 01/15 1508 98.2 77 18 130/68 90 Room Air 01/15 1227 99.3 01/15 1227 99.3 01/15 1114 101.2 01/15 1030 101.2 01/15 0651 100.7 86 20 130/75 92 Room Air 01/14 2305 99.1 01/14 2251 88 20 126/77 96 Room Air 01/14 2206 102.8 01/14 2205 102.8 Intake & Output 01/15 1600 01/15 0800 01/15 0000 Intake Total 1040 920 540 Output Total Balance 1040 920 540 Intake, IV 700 800 300 Intake, Oral 340 120 240 Physical Exam General Appearance: Alert, Cooperative, No Acute Distress Other Physical Findings: General - well developed, well nourished middle aged woman in no acute distress HEENT - NCAT, PERRL, EOMI, anicteric sclera Neck- Supple, no JVD/HJR, no bruits, trachea midline Cardio - S1, S2 w/o murmurs/gallops/rubs; regular rate and rhythm Resp - Clear to auscultation bilaterally GI - Soft, nontender, nondistended, bowel sounds present Neuro - Awake and alert, CN II - XII grossly intact Extremities - No edema, pulses intact Skin-cool clammy and diaphoretic Current Medications: Current Medications Sig/[place] Start time Last Medication Dose Route Stop Time Status Admin Acetaminophen 650 MG Q6P PRN 01/12 2215 AC 01/15 PO 0508 Acetaminophen 1,000 MG Q6P PRN 01/12 2215 AC 01/15 IV 1707 Alprazolam 0.5 MG AT BEDTIME 01/13 2100 AC 01/14 PO 01/20 Aspirin Buffered 81 MG DAILY 01/13 09 AC 01/15 PO 0805 Ceftriaxone Sodium 1,000 MG DAILY 01/13 0900 DC 01/15 IV 0806 Escitalopram Oxalate 20 MG DAILY 01/14 0900 AC 01/15 PO 0805 Fluticasone 2 SPRAY DAILY 01/13 0900 AC 01/15 Propionate VARINDER 0805 Heparin Sodium 5,000 UNIT Q8 01/13 0600 AC 01/14 (Porcine) SC 1437 Ibuprofen 200 MG ONCE ONE 01/15 1000 DC 01/15 PO 01/15 1001 1047 Lidocaine 1 PAT DAILY 01/14 1309 AC 01/15 TOP 0805 Omeprazole 40 MG DAILY AC 01/13 0700 AC 01/15 PO 0459 Polyethylene Glycol 17 GM AT BEDTIME 01/13 2100 AC 01/13 PO 203 Senna/Docusate Sodium 1 TAB AT BEDTIME 01/13 2100 AC 01/13 PO 203 Sodium Chloride 1,000 ML .Q10H 01/12 2215 AC 01/15 IV 1706 Trimethoprim/ 1 TAB BID 01/15 1436 AC 01/15 Sulfamethoxazole PO 1554 Last 24 Hrs of Lab/Marty Results Last 24 Hrs of Labs/Mics: Laboratory Tests 01/15/18 0650: CBC w Diff NO MAN DIFF REQ, RBC 3.23 L, MCV 87.6, MCH 30.4, MCHC 34.7, RDW 13.5 , MPV 7.9, Gran % 77.6 H, Lymphocytes % 9.5 L, Monocytes % 11.9 H, Eosinophils % 0.6, Basophils % 0.4, Absolute Granulocytes 5.8, Absolute Lymphocytes 0.7 L, Absolute Monocytes 0.9 H, Absolute Eosinophils 0, Absolute Basophils 0 Assessment/Plan Assessment: 58-year-old woman with multiple medical problems significant for anal cancer status post surgery and recent rectal biopsy for HPV seen for evaluation of fever. Patient continues to feel poor despite being treated with intravenous ceftriaxone for her UTI/pyelonephritis. Urine culture demonstrated growth of E. coli resistant to ampicillin but sensitive to multiple other agents. Patient has multiple antibiotic sensitivities including a severe adverse reaction to ciprofloxacin. She continues to spike fevers up to 101.2. Physical examination demonstrates a middle-aged woman appearing cold, cool, and diaphoretic with an otherwise normal cardiopulmonary examination and a benign abdomen. Labs today demonstrate a stable WBC with hemoglobin down to 9.8 slowly trending down from the initial 12.4 on admission. Renal function has normalized. Patient is started on oral Bactrim for her urinary tract infection. Problem list -Urinary tract infection/pyelonephritis -Acute kidney injury -Hypertension -Anxiety -low back pain status post lumbar fusion -History of anal cancer status post resection -Condyloma acuminatum status post resection Plan -Continue general medicine admission -Normal saline at 100 mL/h -Discontinue ceftriaxone -Start Bactrim double strength 1 tablet p.o. twice daily -Continue home meds: Lexapro, alprazolam, Flonase, aspirin -Urine culture: E. coli resistant to ampicillin, indeterminate to Unasyn -Monitor renal function -Pain control with lidocaine and acetaminophen -Bowel regimen with senna, MiraLAX -Heart healthy diet -DVT prophylaxis with subcutaneous heparin -Full code Problem List: 1. UTI (urinary tract infection) 2. NISHI (acute kidney injury) Pain Ratin Pain Location: Diffuse body aches Pain Goal: Pain 4 or less Pain Plan: See assessment Tomorrow's Labs & Rationales: CBC, BMP
[2018-01-15 15:08] VITALS: BP 130/68
--- NOTE | 2018-01-15 18:51 | Discharge Summary ---
Visit Information Visit Dates Admission Date: 01/12/18 Discharge Date: 01/17/18 Hospital Course Course Attending Physician: Ambrocio Ballard MD Primary Care Physician: Shawanda HERNANDEZ,[facility] Course: 58-year-old female with recent rectal surgery and prior history of anal cancer presenting with 2 days of fever, chills, dizziness/weakness on top of 2-3 weeks of sensation of fullness in the bladder, likely urinary tract infection. Patient's creatinine was 1.4, which is elevated from last known of 0.8 almost 5 years ago. She is also exhibiting leukocytosis with significant left shift and a positive urinalysis performed in the ED. Renal ultrasound showed normal kidneys bilaterally, without evidence of obstruction/hydronephrosis. EKG- non specific t wave changes seen ad the Pt is asymptomatic. Hence no intervention required, Problems: 1. UTI 2. NISHI 3. Hypokalemia Plan: UTI- - Patient has a RLQ pain , and renal USG came negatiove for peyelonephritis, CT abdomen also did not show any evidence of Pyelonephritis. Since she continues to have pain, fever chills , we continued observing her for 48 hrs. -Surgical site looks normal, no source of infection noted. following which urine cultures revealed E. coli with resistance to ampicillin, following which she was started on Bactrim. We will continue Bactrim PO for a total of 14 days for complicated UTI and discharge the patient on Bactrim. Hypokalemia, NISHI - She was acutely hypokalemic at admission, she was supplemented with oral potassium and monitored for BEP and potassium levels. Hypokalemia resolved. AK I resolved. Headache- Remote history of migraines, was on Topamax Patient is allergic to Percocet, cannot give Tylenol/ NSAIDS excessively because of the NISHI picture Careful usage of pain medications Full code Allergies: Coded Allergies: Penicillins (SWELLING 01/12/18) ciprofloxacin (From CIPRO) (HIVES 01/12/18) Disposition Summary Disposition Principal Diagnosis: complicated UTI Additional Diagnosis: NISHI Hypokalemia Discharge Disposition: home or self care Discharge Instructions General Discharge Information Code Status: Full Code Patient's Diet: regular Patient's Activity: as tolerated Follow-Up Instructions/Appts: Please follow-up with PCP within a week of discharge Medications at Discharge Discharge Medications: Continue taking these medications: Valsartan/Hydrochlorothiazide (Valsartan-Hctz 160-25 MG Tab) 160 MG-25 MG TABLET 1 Tablet ORAL DAILY Qty = 90 Comments: NOT GIVEN IN HOSPITAL Alprazolam (Alprazolam ER) 0.5 MG TAB.ER.24H 1 Tablet ORAL TAKE AT BEDTIME Qty = 30 Comments: Last Taken: 01/16/18 Time: 2100PM Escitalopram Oxalate (Lexapro) 20 MG TABLET 1 Tablet ORAL DAILY Comments: Last Taken: 01/17/18 Time: 0800AM Pantoprazole Sodium (Pantoprazole Sodium) 40 MG TABLET.DR 1 Tablet ORAL Q4D Comments: PRILOSEC GIVEN 01/17/18 @0600AM Fluticasone Propionate (Fluticasone Propionate) 50 MCG/ACTUATION SPRAY.SUSP 2 Lutts Both sides of nose DAILY Comments: Last Taken: 01/17/18 Time: 0800AM Aspirin (Ecotrin*) 81 MG TABLET.DR 1 Tablet ORAL DAILY Comments: Last Taken: 01/17/18 Time: 0800AM Fish Oil/Borage/Flax/Om3,6,9#1 (Aldrich 3-6-9 1,200 MG Softgel) (Unknown Strength) CAPSULE 1 Tablet ORAL DAILY Comments: NOT GIVEN IN HOSPITAL Start taking the following new medications: Sulfamethoxazole/Trimethoprim (Bactrim Ds Tablet) 800 MG-160 MG TABLET 1 Tablet ORAL TWICE DAILY Qty = 20 No Refills Instructions: . Comments: Last Taken: 01/17/18 Time: 0800AM Copies To: Shawanda HERNANDEZ,Junie Attending MD Review Statement Documenting Attending: Deon Cutler MD Other Findings: Discharged in stable condition.
[2018-01-15 22:00] VITALS: BP 129/73
[2018-01-16 06:48] VITALS: BP 131/75
--- NOTE | 2018-01-16 07:31 | PN- Housestaff ---
Wesly Menchaca 01/16/18 0730: Subjective Follow-up For: UTI Subjective: Beata was seen and examined this morning. patient ciontinues to have subjective fevers and cills, SHe is able to walk around and says her abdominal pain is going down Review of Systems Constitutional: Reports: see HPI. Objective Last 24 Hrs of Vital Signs/I&O Vital Signs Date Time Temp Pulse Resp B/P B/P Pulse O2 O2 Flow FiO2 Mean Ox Delivery Rate 01/16 0648 98.2 76 18 131/75 95 Room Air 01/15 2200 98.5 85 20 129/73 92 Room Air 01/15 1508 98.2 77 18 130/68 90 Room Air 01/15 1227 99.3 01/15 1227 99.3 01/15 1114 101.2 01/15 1030 101.2 Intake & Output 01/16 0800 01/16 0000 01/15 1600 Intake Total 395 338 6155 Output Total Balance 465 221 7420 Intake, IV 800 300 700 Intake, Oral 240 340 Physical Exam General Appearance: Alert, Oriented X3, Cooperative, No Acute Distress Cardiovascular: Regular Rate, No Murmurs Lungs: Clear to Auscultation, Normal Air Movement Abdomen: Normal Bowel Sounds, Soft, No Tenderness, No Hepatospenomegaly, No Masses Neurological: Normal Speech, Strength at 5/5 X4 Ext, Normal Tone, Sensation Intact Current Medications: Current Medications Sig/[place] Start time Last Medication Dose Route Stop Time Status Admin Acetaminophen 650 MG Q6P PRN 01/12 2215 AC 01/16 PO 0831 Acetaminophen 1,000 MG Q6P PRN 01/12 221 AC 01/15 IV 1707 Acetaminophen/ 1 TAB ONCE ONE 01/16 1230 DC 01/16 Butalbital/Caffeine PO 01/16 1231 1244 Alprazolam 0.5 MG AT BEDTIME 01/13 2100 AC 01/15 PO 01/207 Aspirin Buffered 81 MG DAILY 01/13 900 AC 01/16 PO 0832 Escitalopram Oxalate 20 MG DAILY 01/14 09 AC 01/16 PO 0832 Fluticasone 2 SPRAY DAILY 01/13 09 AC 01/16 Propionate VARINDER 0831 Heparin Sodium 5,000 UNIT Q8 01/13 0600 AC 01/14 (Porcine) SC 1437 Lidocaine 1 PAT DAILY 01/14 1309 AC 01/16 TOP 0831 Omeprazole 40 MG DAILY AC 01/13 0700 AC 01/16 PO 0436 Ondansetron HCl 4 MG ONCE ONE 01/16 0915 DC 01/16 IV 01/17 916 0929 Polyethylene Glycol 17 GM AT BEDTIME 01/13 2100 AC 01/15 PO 2118 Potassium Chloride 40 MEQ ONCE ONE 01/16 1430 DC PO 01/16 1431 Senna/Docusate Sodium 1 TAB AT BEDTIME 01/13 2100 AC 01/13 PO 2036 Sodium Chloride 1,000 ML .Q10H 01/12 2215 DC 01/16 IV 0436 Trimethoprim/ 1 TAB BID 01/15 1436 AC 01/16 [place] 0832 Last 24 Hrs of Lab/Marty Results Last 24 Hrs of Labs/Mics: Laboratory Tests 01/16/18 0820: Anion Gap 12, Estimated GFR > 60, BUN/Creatinine Ratio 14.3, Magnesium 1.8, CBC w Diff NO MAN DIFF REQ, RBC 3.12 L, MCV 89.3, MCH 30.3, MCHC 33.9, RDW 13.9, MPV 7.9, Gran % 72.0, Lymphocytes % 13.6 L, Monocytes % 12.8 H, Eosinophils % 1.1, Basophils % 0.5, Absolute Granulocytes 5.4, Absolute Lymphocytes 1.0 L, Absolute Monocytes 1.0 H, Absolute Eosinophils 0.1, Absolute Basophils 0 Assessment/Plan Assessment: 58-year-old female with recent rectal surgery and prior history of anal cancer presenting with 2 days of fever, chills, dizziness/weakness on top of 2-3 weeks of sensation of fullness in the bladder, likely urinary tract infection. Patient's creatinine was 1.4, which is elevated from last known of 0.8 almost 5 years ago. She is also exhibiting leukocytosis with significant left shift and a positive urinalysis performed in the ED. Renal ultrasound showed normal kidneys bilaterally, without evidence of obstruction/hydronephrosis. EKG- non specific t wave changes seen ad the Pt is asymptomatic. Hence no intervention required, Problems: 1. UTI 2. NISHI 3. Hypokalemia Plan: UTI- - Patient has a RLQ pain , and renal USG came negatiove for peyelonephritis, CT abdomen also did not show any evidence of Pyelonephritis. Since she continues to have pain, fever chills , will continue observing her. -Surgical site looks normal, no source of infection noted. Hypokalemia, NISHI - Resolved Headache- Remote history of migraines, was on Topamax Patient is allergic to Percocet, cannot give Tylenol/ NSAIDS excessively because of the NISHI picture Careful usage of pain medications Full code Problem List: 1. UTI (urinary tract infection) 2. NISHI (acute kidney injury) 3. Headache Pain Ratin Pain Location: none Pain Goal: Remain pain free Pain Plan: none Tomorrow's Labs & Rationales: none Deon Cutler MD 01/16/18 1029: Attending MD Review Statement Attending Statement Attending MD Statement: examined this patient, discuss w/resident/PA/HUMAN RESOURCES PROJECT MANAGER, agreed w/resident/PA/HUMAN RESOURCES PROJECT MANAGER, reviewed EMR data (avail), discussed with nursing, discussed with case mgmt, amended to note Attending Assessment/Plan: Patient seen and examined. Lying comfortably not in any acute distress. No issues overnight. She remains hemodynamically stable. Vitals per nursing staff sure that she has been afebrile however patient reports taking her temperature herself and obtaining a value of 101. This was not documented by nursing staff. Denies nausea vomiting. Tolerating meals. Denies dysuria. Reports abdominal discomfort is improving. She was transitioned to Bactrim yesterday as she was still having fever while on Rocephin. Will monitor patient overnight. If she remains afebrile with no leukocytosis on labs she may be discharged tomorrow on Bactrim to complete 10 days of antibiotic treatment for her acute complicated urinary tract infection. Follow-up today's labs to ensure that hemoglobin level is also stable. She is noted to have a mild downward trend. If hemoglobin levels continues to trend downwards recommend checking stool guaiac. Downward trend may be secondary to hemodilution.
[2018-01-16 10:23] LABS: ABSOLUTE BASOPHIL COUNT 0 /CUMM (0.0-0.2); ABSOLUTE EOSINOPHIL COUNT 0.1 /CUMM (0.0-0.7); ABSOLUTE GRANULOCYTE CT 5.4 /CUMM (1.4-6.5); BASOPHIL % 0.5 % (0.0-2.0); EOSINOPHIL % 1.1 % (0-5); HEMATOCRIT 27.8 % (37-47); MEAN CORPUSCULAR HGB 30.3 PG (27.0-31.0); MEAN CORPUSCULAR HGB CONC 33.9 G/DL (33.0-37.0); MEAN CORPUSCULAR VOLUME 89.3 FL (81.0-99.0); MEAN PLATELET VOLUME 7.9 FL (7.4-10.4); PLATELET COUNT 182 /CUMM (130-400); RBC DISTRIBUTION WIDTH 13.9 % (11.5-14.5); RED BLOOD CELL CT 3.12 /CUMM (4.20-5.40); WHITE BLOOD CELL COUNT 7.5 /CUMM (4.8-10.8)
[2018-01-16 14:19] VITALS: BP 134/80
[2018-01-16 22:06] VITALS: BP 140/80
[2018-01-17 06:38] VITALS: BP 113/81
[2018-01-17 08:25] LABS: ABSOLUTE BASOPHIL COUNT 0 /CUMM (0.0-0.2); ABSOLUTE EOSINOPHIL COUNT 0.4 /CUMM (0.0-0.7); ABSOLUTE GRANULOCYTE CT 3.4 /CUMM (1.4-6.5); ABSOLUTE LYMPH COUNT 1.1 /CUMM (1.2-3.4); ABSOLUTE MONOCYTE COUNT 0.6 /CUMM (0.10-0.60); BASOPHIL % 0.8 % (0.0-2.0); EOSINOPHIL % 6.4 % (0-5); GRANULOCYTE % 61.3 % (42.2-75.2); HEMATOCRIT 27.2 % (37-47); MEAN CORPUSCULAR HGB 30.5 PG (27.0-31.0); MEAN CORPUSCULAR HGB CONC 34.1 G/DL (33.0-37.0); MEAN CORPUSCULAR VOLUME 89.5 FL (81.0-99.0); MEAN PLATELET VOLUME 7.5 FL (7.4-10.4); PLATELET COUNT 233 /CUMM (130-400); RBC DISTRIBUTION WIDTH 14.1 % (11.5-14.5); RED BLOOD CELL CT 3.04 /CUMM (4.20-5.40); WHITE BLOOD CELL COUNT 5.6 /CUMM (4.8-10.8)
[2018-01-17] MEDS ORDERED: BACTRIM DS TAB1 EACH PO ×2 (11:30→13:07)
--- NOTE | 2018-01-17 11:41 | PN- Housestaff ---
Wesly Menchaca 01/17/18 1141: Subjective Follow-up For: UTI Subjective: Patient was seen and examined this morning. She has been feeling fabulous. No fevers chills no burning urination and she feels ready to go home on oral antibiotics. Review of Systems Constitutional: Reports: see HPI. Objective Last 24 Hrs of Vital Signs/I&O Vital Signs Date Time Temp Pulse Resp B/P B/P Pulse O2 O2 Flow FiO2 Mean Ox Delivery Rate 01/17 0638 98.0 73 20 113/81 95 Room Air 01/16 2206 98.4 80 20 140/80 91 Room Air 01/16 1811 98.9 Intake & Output 01/17 1600 01/17 0800 01/17 0000 Intake Total 480 480 Output Total Balance 480 480 Intake, IV 0 0 Intake, Oral 480 480 Number 1 0 Bowel Movements Physical Exam General Appearance: Alert, Oriented X3, Cooperative, No Acute Distress Cardiovascular: Regular Rate, No Murmurs Lungs: Clear to Auscultation, Normal Air Movement Abdomen: Normal Bowel Sounds, Soft, No Tenderness, No Hepatospenomegaly, No Masses Neurological: Normal Speech, Strength at 5/5 X4 Ext, Normal Tone, Sensation Intact Extremities: No Clubbing, No Cyanosis, No Edema, Normal Pulses, No Tenderness/ Swelling Current Medications: Current Medications Sig/[place] Start time Last Medication Dose Route Stop Time Status Admin Acetaminophen 650 MG Q6P PRN 01/12 2215 DCD 01/16 PO 0831 Acetaminophen 1,000 MG Q6P PRN 01/12 2215 DCD 01/15 IV 1707 Alprazolam 0.5 MG AT BEDTIME 01/13 2100 DCD 01/16 PO 01/20 Aspirin Buffered 81 MG DAILY 01/13 900 DCD 01/17 PO 0853 Escitalopram Oxalate 20 MG DAILY 01/14 09 DCD 01/17 PO 0853 Fluticasone 2 SPRAY DAILY 01/13 900 DCD 01/17 Propionate VARINDER 0853 Heparin Sodium 5,000 UNIT Q8 01/13 06 DCD 01/14 (Porcine) SC 1437 Lidocaine 1 PAT DAILY 01/14 1309 DCD 01/17 TOP 0853 Omeprazole 40 MG DAILY AC 01/13 07 DCD 01/17 PO 0530 Patient Medication 1 ED ONE ONE 09/24 1045 DC 01/17 Teaching ED 01/17 1046 1106 Polyethylene Glycol 17 GM AT BEDTIME 01/13 2100 DCD 01/16 PO 2046 Potassium Chloride 0 .STK-MED ONE 01/16 1807 DC PO Senna/Docusate Sodium 1 TAB AT BEDTIME 01/13 2100 DCD 01/16 PO 2046 Trimethoprim/ 1 TAB BID 01/15 1436 DCD 01/17 Sulfamethoxazole PO 0853 Last 24 Hrs of Lab/Marty Results Last 24 Hrs of Labs/Mics: Laboratory Tests 01/17/18 0749: Anion Gap 9, Estimated GFR > 60, BUN/Creatinine Ratio 18.6, Magnesium 2.1, CBC w Diff NO MAN DIFF REQ, RBC 3.04 L, MCV 89.5, MCH 30.5, MCHC 34.1, RDW 14.1, MPV 7.5, Gran % 61.3, Lymphocytes % 20.2 L, Monocytes % 11.3 H, Eosinophils % 6.4 H, Basophils % 0.8, Absolute Granulocytes 3.4, Absolute Lymphocytes 1.1 L, Absolute Monocytes 0.6, Absolute Eosinophils 0.4, Absolute Basophils 0 Assessment/Plan Assessment: 58-year-old female with recent rectal surgery and prior history of anal cancer presenting with 2 days of fever, chills, dizziness/weakness on top of 2-3 weeks of sensation of fullness in the bladder, likely urinary tract infection. Patient's creatinine was 1.4, which is elevated from last known of 0.8 almost 5 years ago. She is also exhibiting leukocytosis with significant left shift and a positive urinalysis performed in the ED. Renal ultrasound showed normal kidneys bilaterally, without evidence of obstruction/hydronephrosis. EKG- non specific t wave changes seen ad the Pt is asymptomatic. Hence no intervention required, Problems: 1. UTI 2. NISHI 3. Hypokalemia Plan: UTI- - Patient has a RLQ pain , and renal USG came negatiove for peyelonephritis, CT abdomen also did not show any evidence of Pyelonephritis. Since she continues to have pain, fever chills , will continue observing her. -Surgical site looks normal, no source of infection noted. following which urine cultures revealed E. coli with resistance to ampicillin, following which she was started on Bactrim. We will continue Bactrim for a total of 14 days for complicated UTI. Hypokalemia, NISHI - She was acutely hypokalemic at admission, she was supplemented with oral potassium and monitored for BEP and potassium levels. Hypokalemia resolved. AK I resolved. Headache- Remote history of migraines, was on Topamax Patient is allergic to Percocet, cannot give Tylenol/ NSAIDS excessively because of the NISHI picture Careful usage of pain medications Full code Problem List: 1. UTI (urinary tract infection) 2. NISHI (acute kidney injury) 3. Headache Pain Ratin Pain Location: none Pain Goal: Remain pain free Pain Plan: none Tomorrow's Labs & Rationales: none Ambrocio Ballard MD 01/17/18 1716: Attending MD Review Statement Attending Statement Attending MD Statement: examined this patient, discuss w/resident/PA/ASSOCIATE PROFESSOR OF EDUCATION, agreed w/resident/PA/ASSOCIATE PROFESSOR OF EDUCATION, reviewed EMR data (avail), discussed with nursing, discussed with case mgmt, amended to note Attending Assessment/Plan: The patient was seen and discussed with house staff. OK to discharge to home today on po Bactrim to complete total of 14 day course (complicated UTI).
[2018-01-17] MEDS ORDERED: SULFAMETHOXAZO1 EAC1 PO (13:06)
== END 2018-01-17 13:53 | DRG 690 ==
LOC: ERH 13:31 → 2NB 18:43 → ERHI 18:43 → ENRESERV 01-13 11:45 → 2NB 01-13 13:24 → ENPENDDIS 01-17 11:54 → 2NB 01-17 13:53
PROVIDERS: Internal Medicine Interventional Cardiology; Physician Assistant Medical; Student in an Organized Health Care Education/Training Program
DX: N39.0 Urinary tract infection, site not specified (principal); N17.9 Acute kidney failure, unspecified; C21.8 Malignant neoplasm of overlapping sites of rectum, anus and anal canal; E87.6 Hypokalemia; B96.20 Unspecified Escherichia coli [E. coli] as the cause of diseases classified elsewhere; Z16.11 Resistance to penicillins; Z88.1 Allergy status to other antibiotic agents; Z88.0 Allergy status to penicillin; I10 Essential (primary) hypertension; F41.9 Anxiety disorder, unspecified; Z98.1 Arthrodesis status; K21.9 Gastro-esophageal reflux disease without esophagitis
CPT/HCPCS: 2NBP; ERO; 36415; 36592; 71046; 74176; 76775; 81001; 82436; 87040; 87086; 93005; 93010; J0131; J0696; J1644; J2405